=== PATIENT | female | born 1995 | race Caucasian/White ===

== ENCOUNTER 2017-07-01 12:32 | Emergency (ER) | payer OTHER ==
[2017-07-01 12:43] VITALS: BP 125/91; PULSE 91; RESP 16; TEMP 98.2; O2SAT 98
--- NOTE | 2017-07-01 12:59 | EDPHY ---
H & P Stated Complaint: right ue pain/discoloration and heavy started 1120 ,after lifting somethin Time Seen by Provider: 07/01/17 12:54 HPI/ROS: CHIEF COMPLAINT: Right arm HISTORY OF PRESENT ILLNESS: Bruising the patient is a 22-year-old female who comes to the emergency department complaining of some unusual sensations in her right forearm. She states that about 2 hr ago she noticed a small bruise over her vein. She denies any trauma. No fevers. She states that she has then had several red spots and felt pressure like she was getting an IV draw. It has now resolved. At 1 point she felt like her arm was heavy. That is when her grandma who is a retired nurse brought her to the hospital. Patient is now asymptomatic. REVIEW OF SYSTEMS: Constitutional: denies: chills, fever, recent illness, recent injury EENTM: denies: blurred vision, double vision, nose congestion Respiratory: denies: cough, shortness of breath Cardiac: denies: chest pain, irregular heart rate, lightheadedness, palpitations Gastrointestinal/Abdominal: denies: abdominal pain, diarrhea, nausea, vomiting, blood streaked stools Genitourinary: denies: dysuria, frequency, hematuria, pain Musculoskeletal: denies: joint pain, muscle pain Skin: See HPI Neurological: denies: headache, numbness, paresthesia, tingling, dizziness, weakness Hematologic/Lymphatic: denies: blood clots, easy bleeding, easy bruising Immunologic/allergic: denies: HIV/AIDS, transplant EXAM: GENERAL: Well-appearing, well-nourished and in no acute distress. HEAD: Atraumatic, normocephalic. EYES: Pupils equal round and reactive to light, extraocular movements intact, sclera anicteric, conjunctiva are normal. ENT: TMs normal, nares patent, oropharynx clear without exudates. Moist mucous membranes. NECK: Normal range of motion, supple without lymphadenopathy or JVD. LUNGS: Breath sounds clear to auscultation bilaterally and equal. No wheezes rales or rhonchi. HEART: Regular rate and rhythm without murmurs, rubs or gallops. ABDOMEN: Soft, nontender, normoactive bowel sounds. No guarding, no rebound. No masses appreciated. BACK: No CVA tenderness, no spinal tenderness, step-offs or deformities EXTREMITIES: Normal range of motion, no pitting or edema. No clubbing or cyanosis. Normal pulses in all extremities NEUROLOGICAL: Cranial nerves II through XII grossly intact. Normal speech, normal gait. 5/5 strength, normal movement in all extremities, normal sensation , normal cerebellar exam PSYCH: Normal mood, normal affect. SKIN: Very slight christy to right medial forearm possibly slight bruise. No erythema. No induration. No tenderness. Source: Patient, Family - Personal History LMP (Females 10-55): 22-28 Days Ago Current Tetanus/Diphtheria Vaccine: Unsure Current Tetanus Diphtheria and Acellular Pertussis (TDAP): Unsure - Medical/Surgical History Hx Asthma: Yes Hx Chronic Respiratory Disease: No Hx Diabetes: No Hx Cardiac Disease: No Hx Renal Disease: No Hx Cirrhosis: No Other PMH: headaches - Family History Significant Family History: No pertinent family hx - Social History Smoking Status: Never smoked Alcohol Use: Sober Drug Use: None Constitutional: Initial Vital Signs Temperature (C) 36.8 C 07/01/17 12:38 Heart Rate 91 07/01/17 12:38 Respiratory Rate 16 07/01/17 12:38 Blood Pressure 125/91 H 07/01/17 12:38 O2 Sat (%) 98 07/01/17 12:38 O2 Delivery Mode Room Air Allergies/Adverse Reactions: Sulfa (Sulfonamide Antibiotics) Allergy (Intermediate, Verified 07/01/17 12:37) Home Medications: Medication Instructions Recorded Mononessa 28 Tablet 10/05/14 Albuterol 07/01/17 Medical Decision Making ED Course/Re-evaluation: Patient does have very slight christy to the ulnar aspect of her right forearm. It could be a very slight bruise verses a Freckle. No others concerning signs or symptoms. No signs of ischemia. No signs of infection. It would be extremely rare for the patient to have stroke or cardiac disease. I recommended we observe it for 24 hr and have her return if her symptoms are worse. Patient and grandma agree with this plan. Differential Diagnosis: Partial list of the Differential diagnosis considered include but were not limited to; contusion, abrasion, infection and although unlikely based on the history and physical exam, I also considered TIA, CVA, neuropathy, ischemia. I discussed these differential diagnoses and the plan with the patient as well as the usual and expected course. The patient understands that the diagnosis is provisional and that in medicine we are not always correct and that further workup is often warranted. Usual and customary warnings were given. All of the patient's questions were answered. The patient was instructed to return to the emergency department should the symptoms at all worsen or return, otherwise to followup with the physician as we discussed. Departure - Departure Disposition: Home, Routine, Self-Care Clinical Impression: Contusion Qualifiers: Encounter type: initial encounter Contusion area: forearm Laterality: right Qualified Code(s): S50.11XA - Contusion of right forearm, initial encounter Condition: Fair Instructions: Contusion in Adults (ED) Referrals: NONE *PRIMARY CARE P,. [Primary Care Provider] - As per Instructions ED,PHYSICIAN ONDUTY [Medical Doctor] - 1 day, if not improved Stand Alone Forms: Work Comp Follow Up
== END 2017-07-01 13:08 | disposition home or self-care (01) ==
LOC: CED 12:32
DX: S50.11XA Contusion of right forearm, initial encounter (principal); J45.909 Unspecified asthma, uncomplicated; X50.0XXA Overexertion from strenuous movement or load, initial encounter

== ENCOUNTER → 2018-03-17 | Outpatient (CLI) | payer OTHER | LOC: CIMAGING 08:36 | PROVIDERS: ATTEND Family Medicine | DX: R10.31 Right lower quadrant pain (principal); R10.33 Periumbilical pain | CPT/HCPCS: 76705-PO ==

== ENCOUNTER → 2018-03-20 | Outpatient (CLI) | payer OTHER ==
[~2018-03-20] MED LIST: IOPAMIDOL (ISOVUE-300) 100 ML BTL ONE
== END ==
LOC: CIMAGING 13:50
PROVIDERS: ATTEND Family Medicine
DX: R10.33 Periumbilical pain (principal); R10.31 Right lower quadrant pain
CPT/HCPCS: 74177-PO; Q9967